=== PATIENT | female | born 1980 | race Caucasian/White ===

== ENCOUNTER 2022-06-19 08:51 | Outpatient (CLI) | payer OTHER, SELFPAY | END 2022-06-19 08:52 | disposition home or self-care (01) | LOC: NFLDREF 06-26 09:37 | PROVIDERS: PCP Physician Assistant; Referring Provider Physician Assistant; Visit Provider Physician Assistant | DX: R42 Dizziness and giddiness (principal); R63.1 Polydipsia; R35.0 Frequency of micturition; N95.1 Menopausal and female climacteric states | CPT/HCPCS: 80053; 80061; 84443 ==

== ENCOUNTER 2022-06-24 07:12 | Outpatient (CLI) | payer OTHER, SELFPAY ==
--- NOTE | 2022-06-24 07:15 | CRLHL7_ITS ---
For Patients: As a result of the Century Cures Act, medical imaging exams and procedure reports are released immediately into your electronic medical record. You may view this report before your referring provider. If you have questions, please contact your health care provider. CLINICAL HISTORY: missing IUD strings Comparison: 09/05/21 TECHNIQUE: 2D mc scale and color Doppler images were acquired of the pelvis using a transvaginal approach. FINDINGS: On transvaginal imaging, the myometrium has a normal uniform echotexture. Incidental cervical nabothian cysts are present. The uterus measures 10.1 x 6.1 x 7.0 cm. Intrauterine device is in good position within the endometrial canal. The left ovary measures 4.3 x 2.7 x 4.2 cm in size and the right ovary measures 3.9 x 2.2 x 3.2 cm. The ovaries demonstrate normal arterial and venous blood flow on color Doppler analysis. There are no suspicious fluid collections within the cul-de-sac. IMPRESSION: Good position of the IUD within the endometrial canal. Dictated by Silvano Douglass MD @ 06/24/2022 12:40:27 PM (Electronically Signed)
== END 2022-06-24 07:13 | disposition home or self-care (01) ==
PROVIDERS: Visit Provider Physician Assistant
DX: T83.32XA Displacement of intrauterine contraceptive device, initial encounter (principal)
CPT/HCPCS: 76830

== ENCOUNTER 2022-07-17 09:48 | Outpatient (CLI) | payer OTHER, SELFPAY | END 2022-07-17 09:49 | disposition home or self-care (01) | PROVIDERS: Visit Provider Internal Medicine | DX: Z12.11 Encounter for screening for malignant neoplasm of colon (principal); Z80.0 Family history of malignant neoplasm of digestive organs | CPT/HCPCS: 45378; J2250; J3010 ==

== ENCOUNTER 2025-02-04 09:48 | Outpatient (CLI) | payer OTHER, SELFPAY | END 2025-02-04 09:49 | disposition home or self-care (01) | PROVIDERS: Visit Provider Physician Assistant | DX: N39.0 Urinary tract infection, site not specified (principal); R31.9 Hematuria, unspecified | CPT/HCPCS: 87086 ==

== ENCOUNTER 2025-03-21 16:13 | Emergency (ER) | payer OTHER, SELFPAY ==
--- OUTSIDE RECORDS SUMMARY | 2025-03-21 16:16 | XMS_ITS ---
Author Name Interface, [id number] lity Address [address] [place] [address] [address] [place] [address] [facility] Address [address] [facility] [address] [place] [address] Allergies and Adverse Reactions Medication/Group Name Reaction Severity Date Sulfamide 05/18/2024 Plan Date Type Value 05/18/2024 APPOINTMENT NEW PT CONSULT 6 0 MIN 05/23/2024 LAB_ORDER Mammogram, 3D wi th tomosynthesis 11/15/2024 LAB_ORDER MRI breast w/ & w/o contrast Reason for Visit NEW PT CONSULT 60 MIN Encounters Date Name 05/18/2024 Family history of br east cancer 05/18/2024 Heterogeneously dens e breast composition Immunizations Date Name Route Dose Instructions Refusal Reason Stat us Covid-19 vaccine (Pfizer) Patient declined/rejected Not Administered Flu vaccine - Adult Patient declined/rejected Not Administered Medications Date Name Route Dose Frequency Instructions Start Date End Date Status Fill Status Indication 05/18 Ferrous Sulfate Oral Iron active 05/12 Docosahexa noic Acid-Eicos apentanoic Acid Oral 120 mg-180 mg active 05/18 Norethindr one Acet-Ethin yl Est Oral 1 mg-20 mcg active 05/18 Multivitam ins Oral Tablet active Problems Diagnosis Status Date of Diagnosis Resolution Date Family history of breast cancer Active Heterogeneously dense breast composition Active Vital Signs Date Type Value 05/18/2024 Heart Beat 75.00 05/18/2024 Respiratory Rate 18.00 05/18/2024 Oxygen Saturation 98.00 05/18/2024 Intravascular Systolic 132 05/18/2024 Intravascular Diastolic 85 05/18/2024 BSA 2.01 05/18/2024 Weight 202.20 05/18/2024 Height 66.00 05/18/2024 BMI 32.64 05/18/2024 Pain Scale 0.00
--- OUTSIDE RECORDS SUMMARY | 2025-03-21 16:16 | XMS_ITS | Clinical Summary ---
Author Organization [facility] Address [address] [place] [id number] Care Team Providers Care Forest Patrolman Name Role Phone Pcp, No Primary Care Provider Unavailabl e Allergies Active Allergy Reactions Criticality Noted Date Comments Sulfa (Sulfonamide Antibiotics) Hives 01/19 Medications SUMAtriptan (IMITREX) 50 mg tablet Take 50 mg by mouth every 2 hours if needed for Migraine. Max dose: 200mg per 24 hrs. 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 Gender Identity Not on file Sexual Orientation Not on file Obstetrics History Last Filed Vital Signs Vital Sign Reading Time Taken Comments Blood Pressure 95/52 02/15/2014 3:10 PM CDT Pulse 75 02/15/2014 3:10 PM CDT Temperature - - Respiratory Rate 16 02/15/2014 3:10 PM CDT Oxygen Saturation 97% 02/15/2014 3:10 PM CDT Inhaled Oxygen Concentration - - Weight 99.1 kg (218 lb 6.4 oz) 02/15/2014 1:25 P M CDT Height 167.6 cm (5' 6) 02/15/2014 1:25 PM CDT Body Mass Index 35.25 02/15/2014 1:25 PM CDT Plan of Treatment Not on file Advance Directives * Full Code (Latest Code Status on File) Date Activated Date Inactivated Comments 02/15/2014 1:16 PM 02/15/2014 5:38 PM Care Teams Forest Patrolman Relationship Specialty Start Date End Date Pcp, No . PCP - General 02/15/14
--- OUTSIDE RECORDS SUMMARY | 2025-03-21 16:16 | XMS_ITS | CCD ---
Author Name Interface, [id number] [facility] Address [address] [place] [address] [address] [place] [address] Organization [facility] Address [address] [facility] [address] [place] [address] Care Team Providers Care Dot Net Developer Name Role Phone Jessica Olivares DO Unavailable Unavailable Allergies and Adverse Reactions Medication/Group Name Reaction Severity Date Sulfamide 05/18/2024 Care Plan Date Type Value 05/18/2024 APPOINTMENT NEW PT CONSULT 6 0 MIN 05/23/2024 LAB_ORDER Mammogram, 3D wi th tomosynthesis 11/15/2024 LAB_ORDER MRI breast w/ & w/o contrast Reason for Visit NEW PT CONSULT 60 MIN Encounters Date Name 05/18/2024 Family history of br east cancer Immunizations Date Name Route Dose Instructions Refusal Reason Stat us Covid-19 vaccine (Pfizer) Patient declined/rejected Not Administered Flu vaccine - Adult Patient declined/rejected Not Administered Medications Date Name Route Dose Frequency Instructions Start Date End Date Status Fill Status Indication 05/12 Docosahexa noic Acid-Eicos apentanoic Acid Oral 120 mg-180 mg active 05/18 Norethindr one Acet-Ethin yl Est Oral 1 mg-20 mcg active 05/18 Multivitam ins Oral Tablet active 05/18 Ferrous Sulfate Oral Iron active Problems Diagnosis Status Date of Diagnosis Resolution Date Family history of breast cancer Active Heterogeneously dense breast composition Active Procedures Date Category Name Instructions Status 05/18/2024 Physician Order RTC MD Return in 18 months for clinical breast exam Ordered 05/23/2024 Physician Order Mammogram, 3D wi th tomosynthesis Screening mammogram at [facility] in [place], heterogeneously dense breast with a father with history of breast cancer. Please send results to Jessica Olivares DO at [facility] specialist, fax [phone] Ordered 11/15/2024 Physician Order MRI breast w/ & w/o contrast Breast MRI at [facility] in [place], heterogeneously dense breast with a father with history of breast cancer. Please send results to Jessica Olivares DO at [facility], fax [phone] Ordered Social History Date Name Value 05/18/2024 Smoking Status Never smoker 05/18/2024 Sex Female Gender Identity Identifies as fe male Vital Signs Date Type Value 05/18/2024 Heart Beat 75.00 05/18/2024 Respiratory Rate 18.00 05/18/2024 Oxygen Saturation 98.00 05/18/2024 Intravascular Systolic 132 05/18/2024 Intravascular Diastolic 85 05/18/2024 BSA 2.01 05/18/2024 Weight 202.20 05/18/2024 Height 66.00 05/18/2024 BMI 32.64 05/18/2024 Pain Scale 0.00
[2025-03-21 16:23] VITALS: BP 132/73; PULSE 89; RESP 18; TEMP 36.6; O2SAT 99; BMI 34.9
--- OUTSIDE RECORDS SUMMARY | 2025-03-21 18:26 | XMS_ITS ---
Author Name Interface, [id number] lity Address [address] [place] [address] [address] [place] [address] [facility] Address [address] [facility] [address] [place] [address] Allergies and Adverse Reactions Medication/Group Name Reaction [...]
--- OUTSIDE RECORDS SUMMARY | 2025-03-21 18:26 | XMS_ITS | CCD ---
Author Name Interface, [id number] [facility] Address [address] [place] [address] [address] [place] [address] Organization [facility] Address [address] [facility] [address] [place] [address] Care Team Providers Care Molecular Biologist Name Role Phone Jessica Olivares DO Unavailable [...] 3D wi th tomosynthesis Screening mammogram at [facility] in [place], heterogeneously dense breast with a father with history of breast cancer. Please send results to Jessica Olivares DO at [facility] specialist, fax [phone] Ordered 11/15/2024 Physician Order MRI breast w/ & w/o contrast Breast MRI at [facility] in [place], heterogeneously dense breast with a father with history of breast cancer. Please send results to Jessica Olivares DO at [facility] specialist, fax [phone] Ordered Social History Date Name Value 05/18/2024 [...]
--- OUTSIDE RECORDS SUMMARY | 2025-03-21 18:26 | XMS_ITS | CCD ---
Author Name Interface, [id number] [facility] Address [address] [place] [address] [address] [place] [address] Organization [facility] Address [address] [facility] [address] [place] [address] Care Team Providers Care Customer Experience Analyst Name Role Phone Jessica Olivares DO Unavailable [...] 3D wi th tomosynthesis Screening mammogram at [facility] in [place], heterogeneously dense breast with a father with history of breast cancer. Please send results to Jessica Olivares DO at [facility], fax [phone] Ordered 11/15/2024 Physician Order MRI breast w/ & w/o contrast Breast MRI at [facility] in [place], heterogeneously dense breast with a father with history of breast cancer. Please send results to Jessica Olivares DO at [facility] specialist, fax [phone] Ordered Social History Date Name Value 05/18/2024 [...]
--- OUTSIDE RECORDS SUMMARY | 2025-03-22 12:12 | XMS_ITS | Clinical Summary ---
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 PCP - General 02/15/14
--- OUTSIDE RECORDS SUMMARY | 2025-03-22 12:12 | XMS_ITS ---
Author Name Interface, [id number] lity Address [address] [place] [address] [address] [place] [address] [facility] Address [address] [facility] [address] [place] [address] Allergies and Adverse Reactions Medication/Group Name Reaction [...]
--- OUTSIDE RECORDS SUMMARY | 2025-03-22 12:12 | XMS_ITS | CCD ---
Author Name Interface, [id number] [facility] Address [address] [place] [address] [address] [place] [address] Organization [facility] Address [address] [facility] [address] [place] [address] Care Team Providers Care Industrial Analyst Name Role Phone Jessica Olivares DO [...] 3D wi th tomosynthesis Screening mammogram at [facility] in [place], heterogeneously dense breast with a father with history of breast cancer. Please send results to Jessica Olivares DO at [facility], fax [phone] Ordered 11/15/2024 Physician Order MRI breast w/ & w/o contrast Breast MRI at [facility] in [place], heterogeneously dense breast with a father with history of breast cancer. Please send results to Jessica Olivares DO at [facility], fax [phone] Ordered Social History Date Name Value 05/18/2024 [...]
--- OUTSIDE RECORDS SUMMARY | 2025-03-22 12:12 | XMS_ITS ---
Author Name Interface, [id number] lity Address [address] [place] [address] [address] [place] [address] [facility] Address [address] [facility] [address] [place] [address] Allergies and Adverse Reactions Medication/Group Name Reaction [...]
--- OUTSIDE RECORDS SUMMARY | 2025-03-22 12:12 | XMS_ITS | CCD ---
Author Name Interface, [id number] [facility] Address [address] [place] [address] [address] [place] [address] Organization [facility] Address [address] [facility] [address] [place] [address] Care Team Providers Care Diesel Engine Engineer Name Role Phone Jessica Olivares DO Unavailable [...] 3D wi th tomosynthesis Screening mammogram at [facility] in [place], heterogeneously dense breast with a father with history of breast cancer. Please send results to Jessica Olivares DO at [facility], fax [phone] Ordered 11/15/2024 Physician Order MRI breast w/ & w/o contrast Breast MRI at [facility] in [place], heterogeneously dense breast with a father with history of breast cancer. Please send results to Jessica Olivares DO at [facility], fax [phone] Ordered Social History Date Name Value 05/18/2024 [...]
== END 2025-03-21 18:26 | disposition left against medical advice (07) ==
PROVIDERS: Emergency Provider Student in an Organized Health Care Education/Training Program
DX: Z53.21 Procedure and treatment not carried out due to patient leaving prior to being seen by health care provider (principal)